=== PATIENT | female | born 1960 | race Two or more races ===

== ENCOUNTER 2018-02-03 13:43 | Emergency (ER) | payer MEDICAID ==
[~2018-02-03] VITALS: Ht 152.4 cm; Wt 73.7 kg
[2018-02-03 14:19] VITALS: Ht 152.4 cm; Wt 73.7 kg
[2018-02-03 16:03] VITALS: BP 158/86
== END 2018-02-03 17:15 | disposition home or self-care (01) ==
LOC: ED 13:43
DX: J02.9 Acute pharyngitis, unspecified (principal); J01.90 Acute sinusitis, unspecified; E11.9 Type 2 diabetes mellitus without complications
CPT/HCPCS: 82962

== ENCOUNTER 2018-07-27 11:27 | Inpatient (IN) | payer SELFPAY ==
[~2018-07-27] VITALS: Ht 149.9 cm; Wt 75.3 kg
[2018-07-27 11:43] VITALS: Ht 149.9 cm; Wt 75.3 kg
[2018-07-27 12:36] LABS: CALCIUM 8.8 mg/dL (8.5-10.1); CARBON DIOXIDE 27.1 mmol/L (21-32); CHLORIDE SERUM 105 mmol/L (98-107); CREATININE SERUM 0.8 mg/dL (0.6-1.0); GFR1 > 60 mL/min; GLUCOSE SERUM 369 mg/dL (74-106); POTASSIUM SERUM 4.4 mmol/L (3.5-5.1); SODIUM SERUM 139 mmol/L (136-145)
[2018-07-27 12:42] LABS: BASOPHIL % 0.3 % (0-2); PLATELET COUNT 298 x10^3mcL (130-400)
[2018-07-27 13:08] LABS: RED CELL DISTRIBUTION WIDTH 14.6 % (11.5-14.5)
[2018-07-27] MEDS ORDERED: METFORMIN500 M1 (15:08)
[2018-07-27 15:38] LABS: AMYLASE 43 U/L (25-115); LIPASE 220 IU/L (73-393); PHOSPHOROUS 2.8 mg/dL (2.5-4.9)
[2018-07-27 15:40] LABS: CHOLESTEROL 310 mg/dL (<200); CHOLESTEROL/HDL RATIO 9.1; HDL CHOLESTEROL 34 mg/dL (40-60); TRIGLYCERIDES 422 mg/dL (<150)
[2018-07-27 16:03] LABS: T3 TOTAL 1.27 ng/mL
[2018-07-27 16:39] LABS: FREE T4 0.91 ng/dL (0.76-1.46); FREE THYROXINE INDEX 3.2 ug/dL (1.4-4.5); T4(THYROXINE) 10.3 ug/dL (4.7-13.3)
[2018-07-27 17:19] VITALS: BP 135/59
[2018-07-27 20:17] LABS: microscopic required? NO
[2018-07-27 20:22] LABS: UA SPECIFIC GRAVITY >=1.030 (1.005-1.035); urine erythrocyte NEGATIVE (NEGATIVE)
[2018-07-27 20:32] LABS: AMPHETAMINE QUAL UR NONE DETECTED (See below)
[2018-07-27 20:50] VITALS: BP 138/67
[2018-07-28 05:30] LABS: BASOPHIL % 0.7 % (0-2); PLATELET COUNT 225 x10^3mcL (130-400); RED CELL DISTRIBUTION WIDTH 14.2 % (11.5-14.5)
[2018-07-28 05:35] LABS: CALCIUM 7.6 mg/dL (8.5-10.1); CARBON DIOXIDE 25.7 mmol/L (21-32); CHLORIDE SERUM 107 mmol/L (98-107); CREATININE SERUM 0.5 mg/dL (0.6-1.0); GFR1 > 60 mL/min; GLUCOSE SERUM 224 mg/dL (74-106); MAGNESIUM 1.7 mg/dL (1.8-2.4); PHOSPHOROUS 2.8 mg/dL (2.5-4.9); POTASSIUM SERUM 4.3 mmol/L (3.5-5.1); SODIUM SERUM 136 mmol/L (136-145)
[2018-07-28 05:50] VITALS: BP 113/74
[2018-07-28 09:45] VITALS: BP 128/69
[2018-07-28] MEDS ORDERED: METOPROLOL TART25 M1 PO (09:53)
[2018-07-28] MEDS ORDERED: ZES5 PO (09:54)
[2018-07-28] MEDS ORDERED: BG FS (09:54)
[2018-07-28] MEDS ORDERED: METFORMIN HCL1000 MG PO (09:55)
[2018-07-28 13:36] VITALS: BP 139/73
[2018-07-28 13:42] VITALS: BP 139/73
== END 2018-07-28 18:36 | disposition home or self-care (01) | DRG 313 ==
LOC: ED 11:27 → DU 14:25
PROVIDERS: Emergency Medicine; Internal Medicine
DX: R07.89 Other chest pain (principal); E78.00 Pure hypercholesterolemia, unspecified; E11.65 Type 2 diabetes mellitus with hyperglycemia; E78.5 Hyperlipidemia, unspecified; I10 Essential (primary) hypertension; K76.89 Other specified diseases of liver; N83.202 Unspecified ovarian cyst, left side; Z80.59 Family history of malignant neoplasm of other urinary tract organ; Z91.018 Allergy to other foods; Z79.84 Long term (current) use of oral hypoglycemic drugs
CPT/HCPCS: 82962; 83880; 84439; 85378; 90658; 90732; J1815; J1885; J2405; J3010; J7030; Q0092